=== PATIENT | male | born 1980 | race American Indian/Alaskan Native ===

== ENCOUNTER 2017-05-27 21:27 | Emergency (ER) | payer OTHER ==
[2017-05-27] MEDS ORDERED: TYLENOL PO ONE (22:44)
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
[2017-05-28 05:32] VITALS: BP 167/98
== END 2017-05-28 04:35 ==
LOC: ED 21:27
DX: S83.8X1A Sprain of other specified parts of right knee, initial encounter (principal); M79.1 Myalgia; M54.5 Low back pain; M54.2 Cervicalgia; V89.2XXA Person injured in unspecified motor-vehicle accident, traffic, initial encounter; Y93.9 Activity, unspecified; Y99.9 Unspecified external cause status; Y92.410 Unspecified street and highway as the place of occurrence of the external cause
CPT/HCPCS: 70450; 72125; 72131

== ENCOUNTER 2017-10-26 18:44 | Emergency (ER) | payer OTHER ==
[2017-10-26] MEDS ORDERED: PERCOCET 5/325 PO ONE (23:33)
[2017-10-26] MEDS ORDERED: FLEXERIL PO ONE (23:33)
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
[2017-10-27 01:18] VITALS: BP 148/91
== END 2017-10-27 02:14 | disposition home or self-care (01) ==
LOC: ED 18:44
DX: S16.1XXA Strain of muscle, fascia and tendon at neck level, initial encounter (principal); M54.6 Pain in thoracic spine; M25.50 Pain in unspecified joint; R09.81 Nasal congestion; M62.838 Other muscle spasm; V49.49XA Driver injured in collision with other motor vehicles in traffic accident, initial encounter; Y93.89 Activity, other specified; Y92.89 Other specified places as the place of occurrence of the external cause; Y99.8 Other external cause status
CPT/HCPCS: 71046; 71110; 72072

== ENCOUNTER 2021-06-11 21:56 | Emergency (ER) | payer OTHER ==
[2021-06-11 22:07] VITALS: BP 154/91
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
== END 2021-06-12 00:11 | disposition home or self-care (01) ==
LOC: ED 21:56
DX: S00.83XA Contusion of other part of head, initial encounter (principal); S50.812A Abrasion of left forearm, initial encounter; S50.811A Abrasion of right forearm, initial encounter; I10 Essential (primary) hypertension; Z79.899 Other long term (current) drug therapy; V89.2XXA Person injured in unspecified motor-vehicle accident, traffic, initial encounter; Y93.89 Activity, other specified; Y92.488 Other paved roadways as the place of occurrence of the external cause; Y99.8 Other external cause status
CPT/HCPCS: 99282

== ENCOUNTER 2022-03-28 13:20 | Emergency (ER) | payer OTHER ==
[2022-03-28 14:25] VITALS: BP 145/94
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
== END 2022-03-28 14:47 | disposition home or self-care (01) ==
LOC: ED 13:20
DX: M54.50 Low back pain, unspecified (principal); M79.605 Pain in left leg; I10 Essential (primary) hypertension; Z79.899 Other long term (current) drug therapy
CPT/HCPCS: 99282